=== PATIENT | female | born 1990 | race Caucasian/White ===

== ENCOUNTER 2017-07-04 13:38 | Emergency (ER) | payer SELFPAY ==
[2017-07-04 14:00] VITALS: BP 136/87
--- NOTE | 2017-07-04 14:03 | ED Physician Documentation ---
Upper Respiratory Symptoms - HISTORIAN Historian: patient, spouse - HPI Stated Complaint: Cough/Congestion Chief Complaint: Cough/ Upper Respiratory Additional Information: viral lresp inf c/o cough congestion cough oprod yellow greenish mucoid some ear congestion headaache sinus congestion-cvhills but noknown fever. has not had flu or pneumovac Onset: days ago (4-5) Duration: intermittent episodes ( had it few days ago - he is better now) Context: denies: recent foreign travel Severity: moderate Associated Symptoms: chills, sweating, earache, runny nose, sinus pain, sinus drainage, sore throat, hoarseness, productive cough. denies: fever - ROS CONST/EYES: denies: weakness, eye redness, eye itching CVS/RESP: shortness of breath LYMPH: denies: leg swelling, swollen glands GI/: none NEURO/PSYCH: denies: fainting, dizziness MS/SKIN: muscle aches. denies: joint pain - PAST HX Lung Disease: none Surgeries/Procedures: none Immunizations: denies: influenza, pneumovax, UTD Allergies/Adverse Reactions: Allergies Allergy/AdvReac Type Severity Reaction Status Date / Time No Known Allergies Allergy Unverified 07/04/17 13:51 Home Medications: Ambulatory Orders Medication Instructions Recorded Albuterol Sulfate 2.5 mg NEB Q4H #1 ampul.neb 07/04/17 - SOCIAL HX Smoking History: less than 1 pack/day Alcohol Use: rarely Drug Use: none - FAMILY HX Family History: no significant history - VITAL SIGNS Vital Signs: Vital Signs Temp Pulse Resp BP Pulse Ox 98.1 F 88 18 136/87 97 07/04/17 13:40 07/04/17 13:40 07/04/17 13:40 07/04/17 13:40 07/04/17 13:40 - REVIEWED ASSESSMENTS Nursing Assessment Reviewed: Yes Vitals Reviewed: Yes Upper Respiratory Symptoms - EXAM General Appearance: mild distress EENT: eyes nml inspection Neck: normal inspection Respiratory: No: breath sounds nml (slight genl wheeze rattle) Abdomen: non-tender. No: guarding CVS: reg rate & rhythm, heart sounds normal Skin: color nml, no rash, warm,dry. No: cyanosis, diaphoresis Extremities: non-tender, normal range of motion Neuro/Psych: oriented x3, mood/affect nml Discharge Clincal Impression: viral resp infection Prescriptions: Albuterol Sulfate 2.5 mg NEB Q4H #1 ampul.neb Referrals: Primary Doctor,No [Primary Care Provider] - 2 Days Comments: get cold sidney claritin alb neb. rec flu and lpneumovac when better Condition: Good Disposition: 01 HOME, SELF-CARE Decision to Admit: NO Decision Time: 14:07
== END 2017-07-04 14:02 | disposition home or self-care (01) ==
LOC: ED 13:38
DX: J00 Acute nasopharyngitis [common cold] (principal)
CPT/HCPCS: 99283